=== PATIENT | male | born 1945 | race Hispanic/Latino ===

== ENCOUNTER 2020-06-23 23:43 | Emergency (ER) | payer MEDICARE ==
[2020-06-24 01:59] LABS: Basophils % (Auto) 0.6 % (0.0-1.8); Eosinophils # (Auto) 0.2 K/mm3 (0.0-0.4); Eosinophils % (Auto) 3.3 % (0.0-4.3); Hematocrit 34.3 % (35.5-45.6); Hemoglobin 11.5 gm/dl (11.8-15.2); Lymphocytes # (Auto) 1.8 K/mm3 (1.2-5.4); Lymphocytes % (Auto) 24.8 % (13.4-35.0); Mean Corpuscular HGB Conc 34 % (32-34); Mean Corpuscular Volume 103 fl (84-94); Monocytes # (Auto) 0.9 K/mm3 (0.0-0.8); Monocytes % (Auto) 11.7 % (0.0-7.3); Platelet Count 154 K/mm3 (140-440); Red Blood Count 3.34 M/mm3 (3.65-5.03); Red Cell Distribution Width 13.8 % (13.2-15.2)
[2020-06-24 02:20] LABS: BUN/Creatinine Ratio 15; Blood Urea Nitrogen 15 mg/dL (9-20); Calcium 8.9 mg/dL (8.4-10.2); Hemolysis Index 3
--- NOTE | 2020-06-24 06:44 | Emergency Department Report ---
<ENDY COLIN - Last Filed: 06/24/20 10:16> ED General Adult HPI - General Chief complaint: Medical Clearance Stated complaint: GENERAL ILLNESS Time Seen by Provider: 06/24/20 03:01 Source: patient Mode of arrival: Wheelchair Limitations: No Limitations - History of Present Illness Initial comments: Patient is 74-year-old male with history of dementia. Patient presented to the ER stating that he is homeless and he need a place to stay. He also requesting a cane. Patient is currently alert, oriented x3 and in no acute distress. Patient denied any suicidal homicidal ideation. No visual or auditory hallucination. Upon reviewing patient records patient was admitted to geriatric psych unit in March for disturbing behavior was discharged on Haldol and trazodone. Patient today is calm and in no acute distress and not showing any acute psychosis or behavioral issues today. - Related Data Previous Rx's Medication Instructions Recorded Last Taken Type Benztropine [Cogentin] 0.5 mg PO BID #60 tab 03/29/20 Unknown Rx haloperidoL [Haldol] 2 mg PO BID #60 tablet 03/29/20 Unknown Rx traZODone [Desyrel] 50 mg PO QHS #30 tablet 03/29/20 Unknown Rx Allergies Allergy/AdvReac Type Severity Reaction Status Date / Time No Known Allergies Allergy Verified 03/15/20 13:39 ED Review of Systems Comment: All other systems reviewed and negative Constitutional: denies: chills, fever Respiratory: denies: cough, shortness of breath, SOB with exertion, SOB at rest, wheezing Cardiovascular: denies: chest pain, palpitations Gastrointestinal: denies: abdominal pain, nausea, vomiting, diarrhea, constipation, hematemesis, melena, hematochezia Musculoskeletal: denies: back pain Neurological: denies: headache, weakness, numbness, paresthesias, confusion Psychiatric: denies: anxiety, depression, auditory hallucinations, visual hallucinations, homicidal thoughts, suicidal thoughts ED Past Medical Hx - Past Medical History Previous Medical History?: Yes Hx Renal Disease: No Hx Arthritis: No Hx Seizures: No Hx Dementia: Yes Additional medical history: Back Pain - Surgical History Past Surgical History?: No Hx Cholecystectomy: No Hx Appendectomy: No - Social History Smoking Status: Never Smoker Substance Use Type: None - Medications Home Medications: Home Medications Medication Instructions Recorded Confirmed Last Taken Type Benztropine [Cogentin] 0.5 mg PO BID #60 tab 03/29/20 Unknown Rx haloperidoL [Haldol] 2 mg PO BID #60 tablet 03/29/20 Unknown Rx traZODone [Desyrel] 50 mg PO QHS #30 tablet 03/29/20 Unknown Rx ED Physical Exam - General Limitations: No Limitations General appearance: alert, in no apparent distress - Head Head exam: Present: atraumatic, normocephalic, normal inspection - Eye Eye exam: Present: normal appearance, PERRL - ENT ENT exam: Present: normal exam, normal orophraynx, mucous membranes moist - Neck Neck exam: Present: normal inspection, full ROM. Absent: tenderness, meningismus, lymphadenopathy, thyromegaly - Respiratory Respiratory exam: Present: normal lung sounds bilaterally - Cardiovascular Cardiovascular Exam: Present: regular rate, normal rhythm, normal heart sounds - GI/Abdominal GI/Abdominal exam: Present: soft, normal bowel sounds. Absent: distended, tenderness, guarding, rebound, rigid, organomegaly, mass, bruit, pulsatile mass, hernia - Extremities Exam Extremities exam: Present: normal inspection, full ROM, normal capillary refill. Absent: tenderness, pedal edema, joint swelling, calf tenderness - Back Exam Back exam: Present: normal inspection, full ROM. Absent: CVA tenderness (R), CVA tenderness (L) - Neurological Exam Neurological exam: Present: alert, oriented X3, CN II-XII intact, normal gait, reflexes normal - Psychiatric Psychiatric exam: Present: normal mood - Skin Skin exam: Present: warm, intact, normal color ED Medical Decision Making - Lab Data Result diagrams: 06/24/20 01:39 06/24/20 01:38 - Medical Decision Making Patient is 74-year-old male with history of dementia. Patient presented to the ER stating that he is homeless and he need a place to stay. He also requesting a cane. Patient is currently alert, oriented x3 and in no acute distress. Patient denied any suicidal homicidal ideation. No visual or auditory hallucination. Upon reviewing patient records patient was admitted to geriatric psych unit in March for disturbing behavior was discharged on Haldol and trazodone. Patient today is calm and in no acute distress and not showing any acute psychosis or behavioral issues today. Labs reviewed and is unremarkable. Patient remained asymptomatic in the emergency room with a stable vital sign. Pending case management consult for placement. ED Disposition Clinical Impression: Homelessness, Dementia with behavioral disturbance Disposition: Z-07 ELOPED Is pt being admited?: No Condition: Undetermined Additional Instructions: HOMELESS RESOURCES: [facility] NEED [facility]? If you are in need of help or know someone who does, please contact us at [email or web address] call , or come to our offices at [address] [place] [id number], Thursday-Thursday beginning at 8AM. [facility] Admission at 7am Thu to Thu Address: [facility] [place] [id number] Client Engagement [phone] Regular program admission occurs Thursday through Thursday at 7:00 amand operates on a first come, first serve basis.Because we cant anticipate program availability in advance andprogram spots are in high demand, we recommend arriving early. Space fills up fast! Next steps can include: Assignment to a [facility] program bed Connection to and placement in a partner program, or Referral to a partner agency [place] [facility]: [facility] Address: [address] [place] [address] How do I join the [facility] housing program? Our housing programs are offered based on availability. If you are looking to participate in our housing program, simply call [phone] to find out if we have available space. Since we do receive many calls, please allow up to 48 hours for one of our housing specialists to return your call. If we do not have vacancies, we suggest callingthe [employer] hotline at 211 for additional h ousing options. [facility] Admission at 4:30pm daily Address: [place] [address] Referrals: PRIMARY CAREMD [Primary Care Provider] - 3-5 Days <JODI JEFFERS - Last Filed: 06/26/20 10:04> ED Review of Systems ROS: Stated complaint: GENERAL ILLNESS Other details as noted in HPI ED Course Vital Signs 06/23/20 06/24/20 06/24/20 23:47 18:11 18:13 Temperature 98.5 F 97.9 F Pulse Rate 84 73 Respiratory 18 18 18 Rate Blood Pressure 121/75 Blood Pressure 122/62 [Left] O2 Sat by Pulse 98 98 98 Oximetry 06/25/20 06/25/20 06/25/20 01:56 07:05 07:13 Temperature 98.8 F 97.7 F Pulse Rate 77 54 L 63 Respiratory 18 17 16 Rate Blood Pressure Blood Pressure 121/61 132/84 145/82 [Left] O2 Sat by Pulse 98 96 97 Oximetry 06/25/20 06/25/20 11:51 18:06 Temperature Pulse Rate 61 77 Respiratory 16 16 Rate Blood Pressure Blood Pressure 116/98 135/77 [Left] O2 Sat by Pulse 96 96 Oximetry - Reevaluation(s) Reevaluation #1: 06/25/20 14:02 Please note that this patient was not signed out to me. I was not aware that this patient was here. The psychiatric team had contacted me asking about the necessity of a psychiatric consultation. Apparently, this patient was admitted to the geriatric psychiatry floor within the past few months. The patient is not homicidal or suicidal, but he does not have friends or family at this time who can assist in his care. He is not actively combative, violence, or belligerent, but he does appear to be somewhat disorganized, and it does not appear that he can care for himself independently. He unfortunately does not meet criteria for medical admission at this time. He does not appear to have an emergent medical condition present. Case management has been involved. It does not appear that at this point time a safe disposition can be arranged for him secondary to his dementia, and inability to care for himself. In addition, no friends or family are available at this time who can assist in his care. Question for psychiatry is will the patient benefit from placement in the [facility] psych floor for disorganized behavior and dementia. In addition, case management will coordinate with their team to facilitate safe placement, if possible. At the moment, patient does not appear to have an emergent medical condition present. 06/26/20 10:04 ED Medical Decision Making - Lab Data Result diagrams: 06/24/20 01:39 06/24/20 01:38 Critical care attestation.: If time is entered above; I have spent that time in minutes in the direct care of this critically ill patient, excluding procedure time. ED Disposition Is pt being admited?: No Does the pt Need Aspirin: No
[2020-06-25 08:46] LABS: Bilirubin,Urine NEG (Negative); Blood,Urine NEG (Negative); Color,Urine Yellow (Yellow); Mucus,Urine 1+ /HPF; Protein,Urine <15 mg/dL mg/dL (Negative)
[2020-06-25 08:50] LABS: Amphetamine Screen,Urine Negative; Benzodiazepines Screen,Urine Negative; Cannabinoid Screen,Urine Negative; Cocaine Screen,Urine Negative; Methadone Screen,Urine Negative; Opiate Screen,Urine Negative
[2020-06-25 18:11] VITALS: BP 135/77
== END 2020-06-25 21:10 | disposition left against medical advice (07) ==
LOC: ED 23:43
DX: R69 Illness, unspecified (principal); Z53.21 Procedure and treatment not carried out due to patient leaving prior to being seen by health care provider
CPT/HCPCS: 36415; 80048; 85025; U0003; 80307; 80320; 81001; G0480

== ENCOUNTER 2020-06-27 15:38 | Emergency (ER) | payer MEDICARE ==
[2020-06-27 16:36] LABS: Basophils # (Auto) 0.1 K/mm3 (0.0-0.1); Basophils % (Auto) 0.8 % (0.0-1.8); Eosinophils # (Auto) 0.1 K/mm3 (0.0-0.4); Eosinophils % (Auto) 2.4 % (0.0-4.3); Hematocrit 34.7 % (35.5-45.6); Hemoglobin 11.7 gm/dl (11.8-15.2); Lymphocytes # (Auto) 1.5 K/mm3 (1.2-5.4); Lymphocytes % (Auto) 24.8 % (13.4-35.0); Mean Corpuscular HGB Conc 34 % (32-34); Mean Corpuscular Volume 102 fl (84-94); Monocytes # (Auto) 0.7 K/mm3 (0.0-0.8); Monocytes % (Auto) 12.1 % (0.0-7.3); Platelet Count 163 K/mm3 (140-440); Red Blood Count 3.39 M/mm3 (3.65-5.03); Red Cell Distribution Width 13.8 % (13.2-15.2)
[2020-06-27 16:49] LABS: BUN/Creatinine Ratio 17; Blood Urea Nitrogen 15 mg/dL (9-20); Calcium 9.1 mg/dL (8.4-10.2); Hemolysis Index 18
--- NOTE | 2020-06-27 17:21 | Emergency Department Report ---
ED General Adult HPI - General Chief complaint: Altered Mental Status Stated complaint: NEED HELP Time Seen by Provider: 06/27/20 17:11 Source: patient Mode of arrival: Ambulatory Limitations: Altered Mental Status, Physical Limitation - History of Present Illness Initial comments: Patient is 74-year-old male, I evaluated him few days ago for the same p resentation. Patient found on the side of the road by PD that brought him to the emergency room. Patient eloped for a while and came back again stating that he is asking for a place to stay. Patient spent approximately 3 days in the ER last time pending placement. Patient is alert, oriented x3 in no acute distress. Patient is very clear that he just wants help with placement. Patient denied any suicidal homicidal ideation. No visual or auditory hallucination. - Related Data Previous Rx's Medication Instructions Recorded Last Taken Type Benztropine [Cogentin] 0.5 mg PO BID #60 tab 03/29/20 Unknown Rx haloperidoL [Haldol] 2 mg PO BID #60 tablet 03/29/20 Unknown Rx traZODone [Desyrel] 50 mg PO QHS #30 tablet 03/29/20 Unknown Rx Allergies Allergy/AdvReac Type Severity Reaction Status Date / Time No Known Allergies Allergy Verified 06/27/20 18:30 ED Review of Systems ROS: Stated complaint: NEED HELP Other details as noted in HPI Comment: All other systems reviewed and negative Constitutional: denies: chills, fever Respiratory: denies: cough, shortness of breath, SOB with exertion, SOB at rest, wheezing Cardiovascular: denies: chest pain, palpitations Gastrointestinal: denies: abdominal pain, nausea, vomiting Musculoskeletal: denies: back pain Neurological: denies: headache, weakness, numbness, paresthesias, confusion, abnormal gait ED Past Medical Hx - Past Medical History Hx Renal Disease: No Hx Arthritis: No Hx Seizures: No Hx Dementia: Yes Additional medical history: Back Pain - Surgical History Hx Cholecystectomy: No Hx Appendectomy: No - Social History Smoking Status: Current Every Day Smoker Substance Use Type: None - Medications Home Medications: Home Medications Medication Instructions Recorded Confirmed Last Taken Type Benztropine [Cogentin] 0.5 mg PO BID #60 tab 03/29/20 06/29/20 Unknown Rx haloperidoL [Haldol] 2 mg PO BID #60 tablet 03/29/20 06/29/20 Unknown Rx traZODone [Desyrel] 50 mg PO QHS #30 tablet 03/29/20 06/29/20 Unknown Rx ED Physical Exam - General Limitations: Altered Mental Status, Physical Limitation General appearance: alert, in no apparent distress - Head Head exam: Present: atraumatic, normocephalic, normal inspection - Eye Eye exam: Present: normal appearance, PERRL - ENT ENT exam: Present: normal exam, normal orophraynx, mucous membranes moist - Neck Neck exam: Present: normal inspection, full ROM. Absent: tenderness, meningismus - Respiratory Respiratory exam: Present: normal lung sounds bilaterally - Cardiovascular Cardiovascular Exam: Present: regular rate, normal rhythm, normal heart sounds - GI/Abdominal GI/Abdominal exam: Present: soft, normal bowel sounds. Absent: distended, tenderness, guarding, rebound, rigid, organomegaly, mass, bruit, pulsatile mass, hernia - Extremities Exam Extremities exam: Present: normal inspection, full ROM, normal capillary refill. Absent: pedal edema, calf tenderness - Back Exam Back exam: Present: normal inspection, full ROM. Absent: CVA tenderness (R), CVA tenderness (L) - Neurological Exam Neurological exam: Present: alert, oriented X3, CN II-XII intact - Psychiatric Psychiatric exam: Present: normal mood - Skin Skin exam: Present: warm, intact, normal color ED Course Vital Signs 06/27/20 06/27/20 06/27/20 15:41 17:20 18:30 Temperature 98.1 F 97.9 F Pulse Rate 83 78 80 Respiratory 18 20 19 Rate Blood Pressure 122/70 111/66 Blood Pressure 125/80 [Right] O2 Sat by Pulse 97 97 99 Oximetry 06/27/20 06/27/20 06/27/20 19:00 19:22 19:30 Temperature 97.3 F L Pulse Rate 73 85 69 Respiratory 17 15 17 Rate Blood Pressure 116/70 128/66 Blood Pressure 116/70 [Right] O2 Sat by Pulse 99 98 98 Oximetry 06/27/20 06/27/20 06/27/20 20:00 20:30 21:00 Temperature Pulse Rate 78 77 76 Respiratory 17 19 12 Rate Blood Pressure 116/64 118/62 108/54 Blood Pressure [Right] O2 Sat by Pulse 98 98 96 Oximetry 06/27/20 06/27/20 06/27/20 21:30 22:00 22:30 Temperature Pulse Rate 75 70 80 Respiratory 24 20 21 Rate Blood Pressure 124/59 115/61 126/77 Blood Pressure [Right] O2 Sat by Pulse 96 97 98 Oximetry 06/27/20 06/27/20 06/27/20 23:00 23:30 23:58 Temperature Pulse Rate 70 66 77 Respiratory 20 18 18 Rate Blood Pressure 115/67 110/65 116/63 Blood Pressure [Right] O2 Sat by Pulse 98 96 95 Oximetry 06/28/20 06/28/20 06/28/20 00:00 00:30 01:00 Temperature Pulse Rate 72 66 70 Respiratory 18 16 21 Rate Blood Pressure 120/70 129/78 121/66 Blood Pressure [Right] O2 Sat by Pulse 94 99 95 Oximetry 06/28/20 06/28/20 06/28/20 01:30 02:00 02:07 Temperature 97.9 F Pulse Rate 65 73 82 Respiratory 20 16 16 Rate Blood Pressure 120/63 140/93 Blood Pressure 140/93 [Right] O2 Sat by Pulse 97 98 99 Oximetry 06/28/20 06/28/20 06/28/20 02:30 03:00 03:30 Temperature Pulse Rate 66 63 82 Respiratory 14 19 19 Rate Blood Pressure 129/75 134/78 133/75 Blood Pressure [Right] O2 Sat by Pulse 97 96 Oximetry 06/28/20 06/28/20 06/28/20 04:47 05:00 05:30 Temperature Pulse Rate 68 65 64 Respiratory 14 12 21 Rate Blood Pressure 132/68 132/71 Blood Pressure 123/68 [Right] O2 Sat by Pulse 97 95 96 Oximetry 06/28/20 06/28/20 06/28/20 06:00 07:18 13:46 Temperature 98.0 F Pulse Rate 64 73 Respiratory 15 11 L 18 Rate Blood Pressure 140/71 Blood Pressure 134/78 [Right] O2 Sat by Pulse 96 96 95 Oximetry 06/28/20 06/28/20 06/28/20 16:50 20:03 21:32 Temperature 97.2 F L Pulse Rate 68 68 Respiratory 18 18 18 Rate Blood Pressure Blood Pressure 110/52 120/63 [Right] O2 Sat by Pulse 97 97 98 Oximetry 06/29/20 06/29/20 01:17 07:56 Temperature 97.2 F L 98.1 F Pulse Rate 60 68 Respiratory 18 20 Rate Blood Pressure Blood Pressure 126/61 119/87 [Right] O2 Sat by Pulse 97 100 Oximetry ED Medical Decision Making - Lab Data Result diagrams: 06/27/20 16:12 06/27/20 16:12 Critical care attestation.: If time is entered above; I have spent that time in minutes in the direct care of this critically ill patient, excluding procedure time. ED Disposition Clinical Impression: Homelessness Disposition: DC-01 TO HOME OR SELFCARE Is pt being admited?: No Condition: Good Referrals: PRIMARY CARE, [Primary Care Provider] - 3-5 Days
[2020-06-28 13:16] LABS: Bilirubin,Urine NEG (Negative); Blood,Urine NEG (Negative); Color,Urine Yellow (Yellow); Mucus,Urine FEW /HPF; Protein,Urine <15 mg/dL mg/dL (Negative)
[2020-06-29 07:57] VITALS: BP 119/87
--- NOTE | 2020-06-29 10:02 | Consultation ---
History of Present Illness - Reason for Consult Consult date: 06/29/20 Reason for consult: psychosis - History of Present Psychiatric Illness Darius Mccauley is a 74y/o male patient who was brought to the ER after being found on side of the road confused. During my interview this morning, the patient is pleasantly confused. His thought process is disorganized. His speech is tangential. His memory is poor and he a poor historian. The patient is unable to give any insight as to his history or what is going on with him. He says he is unsure as to why he was brought here. He then says "it's back and forth. Back and forth. I just don't know." He says he came from a senior care. The patient denies any SI/HI or hallucinations of any kind. He says "oh no, none of that foolishness." He also denies any illicit drug use, alcohol or nicotine. The patient denies any psychiatric medications, stating "I used to see a psychiatrist. But I don't take any pills or none of that." He then starts talking about "needing to be somewhere." He points to his lower leg, and states "just bleeding that's all." No bleeding was noted. The patient did have a small scratch there. He says it again, "just bleeding. Look at that." The patient says, "I think maybe that's why they brought me here." PAST PSYCHIATRIC HISTORY: Diagnoses: Unable to provide Suicide attempts or Self-harm behavior: Denies Prior psychiatric hospitalizations: Denies Substance Abuse history: Denies Previous psychiatric medications tried: Denies Outpatient treatment: Denies PAST MEDICAL HISTORY: Family Psychiatric History: None reported or documented SOCIAL HISTORY Marital Status: Living Arrangements: nursing home Employment Status: Retired Access to guns/weapons: Denies Education: History of Abuse: none reported Legal History: Denies REVIEW OF SYSTEMS Constitutional: Negative for weight loss ENT: Negative for stridor Respiratory: Negative for cough or hemoptysis All other systems reviewed and are negative MENTAL STATUS EXAMINATION General Appearance: Dressed appropriately Behavior: Calm and cooperative Mood: "okay" Affect and affective range: Congruent with stated mood Thought Process: Illogical Speech: Normal tone and rate Suicidal Ideation: Denies Homicidal Ideation: Denies HI Hallucinations: Denies Delusions: None elicited Impulse Control: Impaired Insight and Judgment: Poor Memory/Cognition: Impaired Attention: Normal Orientation: Alert, oriented x 2 Assessment Dementia w/Behavioral Disturbance PLAN Start Risperidone 0.25mg po BID Start Trazodone 50mg po qhs Sitter: Defer to primary Medical: Per primary Disposition: Recommend acute inpatient treatment Will follow. Thank you for this consult Medications and Allergies Allergies Allergy/AdvReac Type Severity Reaction Status Date / Time No Known Allergies Allergy Verified 06/27/20 18:30 Home Medications Medication Instructions Recorded Confirmed Last Taken Type Benztropine [Cogentin] 0.5 mg PO BID #60 tab 03/29/20 Unknown Rx haloperidoL [Haldol] 2 mg PO BID #60 tablet 03/29/20 Unknown Rx traZODone [Desyrel] 50 mg PO QHS #30 tablet 03/29/20 Unknown Rx Mental Status Exam - Vital signs Last Vital Signs Temp 98.1 F 06/29/20 07:56 Pulse 68 06/29/20 07:56 Resp 20 06/29/20 07:56 BP 119/87 06/29/20 07:56 Pulse Ox 100 06/29/20 07:56 Results Result Diagrams: 06/27/20 16:12 06/27/20 16:12 All other labs normal.
[2020-06-29] MEDS ORDERED: risperiDONE 0.25 MG TAB PO SCH (11:00)
[2020-06-29] MEDS ORDERED: traZODone 50 MG TAB PO SCH (22:00)
== END 2020-06-29 16:50 | disposition home or self-care (01) ==
LOC: ED 15:38
DX: F03.90 Unspecified dementia, unspecified severity, without behavioral disturbance, psychotic disturbance, mood disturbance, and anxiety (principal); F17.200 Nicotine dependence, unspecified, uncomplicated; Z59.0 Homelessness; Z79.899 Other long term (current) drug therapy; Z20.828 Contact with and (suspected) exposure to other viral communicable diseases
CPT/HCPCS: 36415; 80048; 85025; 93005; 99285; U0003